=== PATIENT | female | born 1950 | race Caucasian/White ===

== ENCOUNTER 2020-01-07 14:31 | Inpatient (IN) | payer OTHER ==
[~2020-01-07] VITALS: Ht 149.9 cm; Wt 54.4 kg
[2020-01-13] MEDS ORDERED: FOSAMAX70 MG PO (13:38)
== END 2020-01-21 20:33 | disposition home or self-care (01) | DRG 349 ==
LOC: SURG 01-20 07:50 → O/R 01-20 07:50 → SURG 01-20 13:00
PROVIDERS: ADMIT Colon & Rectal Surgery
PROC: 0DBP7ZZ Excision of Rectum, Via Natural or Artificial Opening (ICD-10-PCS; principal; 2020-01-20 18:15)
DX: D12.8 Benign neoplasm of rectum (principal); I12.9 Hypertensive chronic kidney disease with stage 1 through stage 4 chronic kidney disease, or unspecified chronic kidney disease; N18.3 Chronic kidney disease, stage 3 (moderate); M81.0 Age-related osteoporosis without current pathological fracture

== ENCOUNTER 2021-02-10 07:17 | Day surgery (SDC) | payer OTHER ==
[~2021-02-10 07:17] MED LIST: FOSAMAX70 MG PO
== END 2021-02-10 14:05 | disposition home or self-care (01) ==
LOC: AMB-ENDOS 07:17
PROVIDERS: ATTEND Colon & Rectal Surgery
DX: D12.8 Benign neoplasm of rectum (principal); K64.0 First degree hemorrhoids; Z20.822 Contact with and (suspected) exposure to COVID-19

== ENCOUNTER 2021-07-07 06:34 | Day surgery (SDC) | payer OTHER | END 2021-07-07 13:30 | disposition home or self-care (01) | LOC: AMB-ENDOS 06:34 | PROVIDERS: ATTEND Colon & Rectal Surgery | DX: D12.9 Benign neoplasm of anus and anal canal (principal); K64.0 First degree hemorrhoids; Z20.822 Contact with and (suspected) exposure to COVID-19 ==

== ENCOUNTER 2024-07-15 09:23 | Day surgery (SDC) | payer OTHER ==
[~2024-07-15 09:23] MED LIST changes: +BUSPIRONE 5 MG; +COZAAR50 MG
[2024-07-15] MEDS ORDERED: LIDOCAINE HCL 1%/EPINEPHRINE 20ML VIAL IJ ONE ×2 (11:14→12:58)
[2024-07-15] MEDS ORDERED: POVIDONE-IODINE 118 ML BOTT TOP ONE ×2 (11:14→12:58)
[2024-07-15] MEDS ORDERED: DIBUCAINE 30 GM TUBE ONE ×2 (11:14→12:57)
[2024-07-15] MEDS ORDERED: BUPIVACAINE HCL/MPF 0.5% 30ML VIAL ONE ×2 (11:14→12:57)
[2024-07-15] MEDS ORDERED: HEMOSTATIC MATRIX 1 KIT KIT TOP ONE ×2 (11:15→12:58)
[2024-07-15] MEDS ORDERED: CHLORHEXIDINE GLUCONATE 120 ML BOTTLE TOP ONE (13:45)
[2024-07-15] MEDS ORDERED: METRONIDAZOLE/SODIUM CHLORIDE 500 MG/100 ML PIGGYBACK IV ONE (14:30)
[2024-07-15] MEDS ORDERED: CEFTRIAXONE SODIUM 2,000 MG VIAL IV ONE (14:30)
== END 2024-07-15 18:00 | disposition home or self-care (01) ==
LOC: CIR.AMB 09:23
PROVIDERS: ATTEND Colon & Rectal Surgery
DX: D12.8 Benign neoplasm of rectum (principal); K62.82 Dysplasia of anus